=== PATIENT | female | born 2005 | race Caucasian/White ===

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

== ENCOUNTER 2023-01-01 10:30 | Emergency (ER) | payer MEDICAID, SELFPAY ==
[2023-01-01 10:31] VITALS: BP 110/77; PULSE 81; RESP 18; TEMP 36.6; O2SAT 100; BMI 18.8
--- NOTE | 2023-01-01 10:39 | US_ITS ---
STUDY: FIRST TRIMESTER OBSTETRICAL ULTRASOUND REASON FOR EXAM: Female, 17 years old pelvic pain/bleeding LMP: October 13, 2022. TECHNIQUE: TECHNICAL QUALITY: Adequate. PRIOR ULTRASOUND: None. FINDINGS: There is visualization of a single gestational sac in a normal intrauterine position. There is visualization of the placenta. Placenta previa. There is visualization of a live embryo. The crown-rump length (CRL) measures 5 cm, indicating an estimated gestational age (EGA) of 11 weeks, 4 days. There is demonstrated cardiac activity with a heart rate of 157 bpm. The estimated gestation age (EGA) by LMP is 11 weeks, 3 days. The estimated date of delivery (JOSSELYN) by LMP is July 20, 2023. The estimated gestation age (EGA) by US is 11 weeks, 4 days. The estimated date of delivery (JOSSELYN) by US is July 19, 2023. The uterus measures 10.2 cm x 11.2 cm x 6.9 cm. There is no demonstrated uterine fibroid. The cervix is closed. There is evidence of a placenta previa. The right ovary measures 2.9 cm x 1.7 cm x 2 cm. There is no right ovarian cyst. There is no visualized right adnexal mass or complex lesion. The left ovary measures 3.1 cm x 1.7 cm x 1.8 cm. There is no left ovarian cyst. There is no visualized left adnexal mass or complex lesion. There is no fluid in the cul de sac. US/Transvaginal w/Preg US IMPRESSION: Single live uterine gestation with a mean gestational age of 11 weeks and 4 days. Placenta previa. Electronically Signed: Jonathan Neal MD at 11:54 EDT ,
--- NOTE | 2023-01-01 10:44 | EDS_ITS ---
HPI HPI - Female History of Present Illness Chief Complaint: Vag Bld, Preg Narrative Narrative: 17-year-old female presenting with pelvic pain and vaginal bleeding. She has confirmed intrauterine by Dr. Tali Hope at [facility] on 12/02/2022. Patient states that last night she started having some pelvic cramping. She noted a large gush of blood. She states that this stopped for short while and she wore a pad to bed. She woke this morning with more bleeding. She states he is passing clots. Her pelvic pain is resolved. PFSH PFSH Home Medications cephalexin 500 mg capsule 500 mg PO Q12 #14 caps 05/17/22 [Rx Last Taken Unknown] Allergy/AdvReac Type Severity Reaction Status Date / Time No Known Allergies Allergy Verified 01/01/23 10:33 Social History household members: significant other Smoking Status: Never smoker substance use type: does not use ROS ROS ED Constitutional Constitutional ED: Denies chills, fever(s) or sweats Eyes Eyes: Denies blurry vision or change in vision ENT ENT ED: Denies ear pain or sore throat Cardiovascular Cardiovascular: Denies chest pain, palpitations or racing heartbeat Respiratory/Chest Respiratory/Chest: Denies cough, dyspnea or sputum Gastrointestinal Gastrointestinal: Reports abdominal pain; Denies constipation, diarrhea, nausea or vomiting Genitourinary Genitourinary ED: Reports other Details: Vaginal bleeding and clotting ; Denies dysuria, hematuria or urinary frequency Musculoskeletal Musculoskeletal: Denies arthralgias, myalgias or neck pain Integumentary Denies abscess, Abrasions or rash Neurologic Neurologic: Denies headache(s), paresthesias or weakness Psychiatric Psychiatric: Denies anxiety, depression, suicidal ideation or suicidal thoughts Endocrine Endocrinology: Denies polydipsia or polyuria EXAM Physical Exam Const Vital Signs: 01/01/23 10:31 Temperature 98 F Temperature Source Temporal Pulse Rate 81 Respiratory Rate 18 Blood Pressure 110/77 Blood Pressure Mean 88 Pulse Ox 100 Oxygen Delivery Method Room Air Positive well nourished General Appearance ED: NAD HEENT Reports moist mucous membranes Eyes PERRL General Eye ED: Negative for pale conjunctiva Resp normal respiratory effort Cardio regular rate and regular rhythm GI normal to inspection, nondistended, normoactive bowel sounds Extremity normal to inspection Neuro oriented x3 and CN's II-XII intact bilaterally Sensorium / Orientation: alert Motor Exam: strength 5/5 throughout Psych mental status grossly normal Skin no rashes or lesions noted MDM MDM MDM Narrative Medical decision making narrative: I reviewed patient's records on [facility]. On 12/02/2022 she had an ultrasound performed which showed normal ovaries. There was a well-formed gestational sac within the endometrial cavity at the fundus of the uterus with yolk sac and pole noted with a heart rate of 143. Estimated gestational age was 7 weeks 1 day. Patient's blood type O+ so she does not need RhoGAM. The patient's quantitative hCG in October was 4106. CBC to assess white blood cell count, hemoglobin, platelets. Quantitative hCG to compare to previous. Transva ginal ultrasound will be obtained. CBC is normal without evidence of anemia, leukocytosis. hCG 148,559. Urinalysis negative. Transvaginal ultrasound show single live uterine gestation with a mean gestational age of 11 weeks and 4 days.there is also evidence of placenta previa. Patient was counseled on this. I recommended that she follow-up with her [employer] TECHNICIAN this week. I recommended very light duty. She also counseled that she has a threatened miscarriage due to vaginal bleeding during . She is understanding of this. Patient discharged in stable condition. Impression: 1. Threatened miscarriage 2. Placenta previa Lab Data Attestation: I reviewed the patient's lab results. Labs: Laboratory Results - last 24 hr 01/01/23 01/01/23 01/01/23 10:50 10:50 11:10 WBC 8.4 RBC 3.97 L Hgb 12.3 Hct 35.8 L MCV 90.2 MCH 31.0 MCHC 34.4 RDW Std Deviation 42.9 RDW Coeff of Angel 13.0 Plt Count 275 MPV 9.9 Immature Gran % (Auto) 0.200 Neut % (Auto) 61.0 Lymph % (Auto) 31.2 Elliott % (Auto) 6.8 Eos % (Auto) 0.6 Baso % (Auto) 0.2 Absolute Neuts (auto) 5.1 Absolute Lymphs (auto) 2.61 Nucleated RBC % 0 HCG, Quant 283165 H Urine Color Straw Urine Clarity Clear Urine pH 6.5 Ur Specific [place] 1.010 Urine Protein Negative Urine Glucose (UA) Normal Urine Ketones Negative Urine Occult Blood 25 H Urine Nitrite Negative Urine Bilirubin Negative Urine Urobilinogen Normal Ur Leukocyte Esterase Negative Urine RBC 0-5 SEEN Urine WBC 0 SEEN Ur Squamous Epith Cells 0-5 SEEN Urine Bacteria 0 SEEN Urine Mucus 0 SEEN Radiography Diagnostic Testing: Clinical Impression(s) from Imaging Studies Obstetrics Ultrasound 01/01/23 10:39 IMPRESSION: Single live uterine gestation with a mean gestational age of 11 weeks and 4 days. Placenta previa. Electronically Signed: Jonathan Neal MD at 11:54 EDT , Discharge Plan Triage Chief Complaint: Vag Bld, Preg ED Provider: Robert Landon Dx/Rx/DC Orders Instructions: Placenta Previa, ED Possible Miscarriage ... Prescriptions: No Action cephalexin 500 mg capsule 500 mg PO Q12 Qty: 14 0RF Primary Care Provider: Care Physician,No Primary Referrals: Care Physician,No Primary [Primary Care Provider] - Disposition Disposition: Home, Self Care Discharge Date/Time: 01/01/23 12:09
[2023-01-01 11:14] LABS: Bacteria 0 SEEN /hpf (None Seen); Mucous, Urine 0 SEEN /hpf (<or=2+); White Blood Cells 0 SEEN /hpf (0-5)
[2023-01-01 11:14] LABS: Absolute Lymphocyte Count 2.61 X10^3/uL (0.83-4.51); Absolute Neutrophil Count 5.1 X10^3/uL (2.0-7.7); Basophil# 0.02 X10^3/uL; Basophil% 0.2 % (0-1); Eosinophil# 0.05 X10^3/uL; Eosinophils% 0.6 % (0-5); Hematocrit 35.8 % (37-47); Hemoglobin 12.3 g/dL (12.0-15.0); Lymphocyte # 2.61 X10^3/ul (0.83-4.51); Lymphocyte % 31.2 % (19-41); Mean Corp Hgb Conc 34.4 g/dL (32-36); Mean Corpuscular Volume 90.2 fL (81-99); Mean Platelet Vol. 9.9 fl (6.2-12.0); Monocyte# 0.57 X10^3/uL; Monocyte% 6.8 % (0-10); NRBC Flagged by Analyzer 0 % (0-5); Neutrophil # 5.09 X10^3/uL (2.7-7.7); Platelet Count 275 K/mm3 (150-450); RBC Distribution Width SD 42.9 fl (35.1-43.9); Red Blood Count 3.97 M/mm3 (4.2-5.4); White Blood Count 8.4 K/mm3 (4.4-11.0)
[2023-01-01 11:18] LABS: Color, Urine Straw (Yellow); Glucose, Dipstick Normal (Normal); Ketone-Dipstick Negative (Negative); Leukocyte Esterase-Dipstick Negative /ul (Negative); Nitrite-Dipstick Negative (Negative); Occult Blood-Urine 25 /ul (Negative); Protein-Dipstick Negative (Negative); Urine Bilirubin Dipstick Negative (Negative); Urine Clarity Clear (Clear); Urine Urobilinogen Normal (Normal); Urine pH 6.5 (5.0 - 8.0)
[2023-01-01 11:25] LABS: Red Blood Cells-Urine 0-5 SEEN /hpf (0-5); Squamous Epithelial Cells - UA 0-5 SEEN /hpf (5-10)
--- NOTE | 2023-01-01 12:03 | CM.ED ---
Social Work Note Referral Source: Case Find Referral Reason: No PCP SW met with patient and introduced herself and role as [facility] [employer] [employer] Worker. Patient was laying on hospital bed and agreeable to speak with SW. SW inquired about patient's insurance and PCP. Patient reports she needs a new PCP as her previous one was for children. SW provided patient with a list of local PCPs accepting new patients in network with patient's insurance. Patient requested a list of OBGYNs in [place] or [place] accepting new patients in network with her insurance as she currently travels to [place]. SW provided patient with a list of OBGYNs accepting new patients in network with patient's insurance within 25 miles of [place], which included [place]. Patient was receptive towards both lists and expressed her appreciation. No other needs voiced at this time. SW remains available if needs arise. Teresa Mast MSW, OLIVIA
== END 2023-01-01 12:09 | disposition home or self-care (01) ==
PROVIDERS: Emergency Provider Student in an Organized Health Care Education/Training Program; Visit Provider Student in an Organized Health Care Education/Training Program
DX: O20.0 Threatened abortion (principal); Z3A.11 11 weeks gestation of pregnancy; O44.01 Complete placenta previa NOS or without hemorrhage, first trimester
CPT/HCPCS: 76817; 81001; 84702; 85025; 99283; A4216

== ENCOUNTER 2023-06-05 22:31 | Outpatient (CLI) | payer MEDICAID, SELFPAY ==
[2023-06-05 22:48] VITALS: BP 119/73; PULSE 63; TEMP 37; O2SAT 98
[2023-06-05 22:53] VITALS: BMI 22.4
[2023-06-05 23:19] LABS: Color, Urine Yellow (Yellow); Glucose, Dipstick Normal (Normal); Ketone-Dipstick Negative (Negative); Leukocyte Esterase-Dipstick 25 /ul (Negative); Nitrite-Dipstick Negative (Negative); Occult Blood-Urine Negative /ul (Negative); Protein-Dipstick Negative (Negative); Urine Bilirubin Dipstick Negative (Negative); Urine Clarity Clear (Clear); Urine Urobilinogen Normal (Normal)
--- NOTE | 2023-06-06 03:30 | OB.TRI.NOTE ---
HPI - General HPI Narrative MARY SHI, is a 17 F who presents with cramps. Patient's mother concerned she was in labor or has a UTI. Positive movement. Denies any loss of fluid or vaginal bleeding. Maternal Data Information JOSSELYN Calculator Estimated Delivery Date Method Current WG Current Estimate 07/20/23 Manual 33w 5d PFSH PFSH Home Medications cephalexin 500 mg capsule 500 mg PO Q12 #14 caps 05/17/22 [Rx Last Taken Unknown] ferrous sulfate 325 mg (65 mg iron) tablet (Feosol) 325 mg PO DAILY anemia 06/05/23 [History Last Taken 06/05/23] vitamn-iron carb-folic acid-docusate 95 mg-1 mg-50 mg capsule 1 cap PO .1 06/05/23 [History Last Taken 06/05/23] Allergy/AdvReac Type Severity Reaction Status Date / Time No Known Allergies Allergy Verified 06/05/23 22:56 Social History household members: significant other Smoking Status: Never smoker substance use type: does not use ROS Eyes Eyes: Denies blurry vision Cardiovascular Cardiovascular: Reports none; Denies chest pain at rest, chest pain with activity or dizziness Respiratory/Chest Respiratory/Chest: Denies cough or dyspnea Gastrointestinal Gastrointestinal: Reports none and other; Denies diarrhea or vomiting Genitourinary Genitourinary: Denies dysuria Musculoskeletal Musculoskeletal: Reports none Integumentary Integumentary: Reports none; Denies rash Neurologic Neurologic: Denies dizziness, headache(s) or other visual disturbances Psychiatric Psychiatric: Reports none Physical Exam Const alert and no apparent distress General Appearance: cooperative and comfortable Exam Limitations: no limitations HEENT normocephalic Eyes General Eye: normal appearance of both eyes Neck full ROM General: normal visual inspection Chest Chest: symmetrical chest wall rise Resp normal respiratory effort and normal air movement Effort and Inspection: symmetric chest movement Auscultation: clear to auscultation bilaterally Cardio regular rate and regular rhythm GI normal to inspection, nondistended, normoactive bowel sounds Back/Spine normal ROM Extremity full ROM and no calf tenderness General Extremity: normal exam except as noted Skin no rashes or lesions noted Neuro CN's II-XII intact bilaterally Psych mental status grossly normal NST FHR Rate Baby A Baseline: 130 Variability:: Moderate Accelerations:: 15 x 15 Decelerations:: None NST Reactive:: Yes FHR Category:: Category I Uterine Activity:: irritability Assessment & Plan (1) 33 weeks gestation of : (2) Abdominal cramping: PLAN: Plan NST reactive No contractions palpated UA- negative Suspect dehydration- oral hydration at this time labor precautions and kick counts reviewed with patient D/C home with follow up in office
== END 2023-06-05 23:40 | disposition home or self-care (01) ==
LOC: WPOUT 22:34 → WP 22:34
PROVIDERS: Referring Provider Advanced Practice Midwife; Visit Provider Advanced Practice Midwife
DX: O99.891 Other specified diseases and conditions complicating pregnancy (principal); R10.9 Unspecified abdominal pain; Z3A.33 33 weeks gestation of pregnancy
CPT/HCPCS: 59025; 59050; 81002; 99221; G0378